=== PATIENT | female | born 1950 | race Caucasian/White ===

== ENCOUNTER → 2017-06-07 | Outpatient (CLI) | payer OTHER | END | disposition home or self-care (01) | LOC: C.RDSM 13:55 | PROVIDERS: ATTEND Physical Medicine & Rehabilitation Sports Medicine | DX: Z09 Encounter for follow-up examination after completed treatment for conditions other than malignant neoplasm (principal); Z96.659 Presence of unspecified artificial knee joint ==

== ENCOUNTER → 2017-12-28 | Outpatient (CLI) | payer OTHER | END | disposition home or self-care (01) | LOC: C.LABSPEC 10:51 | PROVIDERS: ATTEND Nurse Practitioner Family | DX: N39.0 Urinary tract infection, site not specified (principal) ==

== ENCOUNTER 2020-11-27 05:09 | Observation (INO) ==
--- NOTE | 2020-11-04 12:41 | PAT Medication Instructions ---
Medication Instructions Date of Service November 04, 2020 Home Medications acetaminophen [Tylenol 8 Hour] 650 mg PO Q8H anastrozole [Arimidex] 1 mg PO QAM apixaban [Eliquis] 5 mg PO BID atorvastatin [Lipitor] 80 mg PO QAM budesonide-formoterol [Symbicort] 2 puff INHALATION BID calcium 600 mg PO QAM carvedilol [Coreg] 6.25 mg PO BID cholecalciferol (vitamin D3) [Vitamin D3] 25 mcg PO QAM clopidogrel [Plavix] 75 mg PO PM dexlansoprazole [Dexilant] 60 mg PO QAM duloxetine [Cymbalta] 60 mg PO BID ezetimibe [Zetia] 10 mg PO PM furosemide [Lasix] 40 mg PO DAILY PRN gabapentin 400 mg PO HS gabapentin 600 mg PO QID hydrochlorothiazide 12.5 mg PO QAM losartan 100 mg PO PM potassium chloride 10 meq PO DAILY PRN zoledronic jovu-[id number]-znerq [Reclast] 1 ea IV DIRECTED Continue as directed zoledronic wxtl-gppyihys-[id number] [Reclast] 1 ea IV DIRECTED ASK your prescriber and surgeon apixaban [Eliquis] 5 mg PO BID -- will need to be held for 3 days prior to surgery for spinal anesthesia. clopidogrel [Plavix] 75 mg PO PM -- will need to be held for 7 days prior to surgery for spinal anesthesia. DO NOT take the morning of surgery calcium 600 mg PO QAM cholecalciferol (vitamin D3) [Vitamin D3] 25 mcg PO QAM furosemide [Lasix] 40 mg PO DAILY PRN hydrochlorothiazide 12.5 mg PO QAM potassium chloride 10 meq PO DAILY PRN Take morning of surgery With a small sip of water, OTHERWISE NOTHING TO EAT OR DRINK AFTER MIDNIGHT: acetaminophen [Tylenol 8 Hour] 650 mg PO Q8H (if needed, may be taken up to four hours before surgery) anastrozole [Arimidex] 1 mg PO QAM (unless otherwise instructed by surgeon or prescriber) atorvastatin [Lipitor] 80 mg PO QAM budesonide-formoterol [Symbicort] 2 puff INHALATION BID carvedilol [Coreg] 6.25 mg PO BID dexlansoprazole [Dexilant] 60 mg PO QAM duloxetine [Cymbalta] 60 mg PO BID gabapentin 600 mg PO QID Take evening before surgery acetaminophen [Tylenol 8 Hour] 650 mg PO Q8H (if needed) budesonide-formoterol [Symbicort] 2 puff INHALATION BID carvedilol [Coreg] 6.25 mg PO BID duloxetine [Cymbalta] 60 mg PO BID ezetimibe [Zetia] 10 mg PO PM furosemide [Lasix] 40 mg PO DAILY PRN (if needed) gabapentin 400 mg PO HS gabapentin 600 mg PO QID losartan 100 mg PO PM potassium chloride 10 meq PO DAILY PRN (if needed) Other Notes If you have any questions please call us at [phone] or [phone] or [phone] or [phone]
--- NOTE | 2020-11-04 12:59 | Anesthesiology Consultation ---
Date of Service November 04, 2020 Assessment & Plan (1) Encounter for pre-operative examination: COVID Status: As of 11/04 assessment, patient denies travel to endemic area, known exposure/sick contacts, or symptoms of COVID19. Patient instructed that they and their household members must follow strict social distancing guidelines, wear a mask in public and avoid travel/events/gatherings for 14 days prior to surgery. Preoperative COVID19 testing to be completed prior to surgery per surgeon's arrangements. Patient made aware to self-isolate as much as possible between COVID testing and surgery. Possible difficult intubation based on exam. 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 Unfortunately, per cardiology, Eliquis approved to be held for 2 days, and Plavix for 5 days. Therefore patient is not a candidate for spinal anesthesia. Surgeon's office made aware. Chart Review Chart Review: Acceptable Risk for Surgery (pending surgeon ordered pcp clearance) and Patient seen in Pre Admission Testing Teaching & Discussion Instructed NPO after midnight before surgery, except medications with 15 cc of water. Medication instructions provided according to the PAT guidelines. History Surgery Operation Date: 11/27/20 07:15 Proposed Procedures p Left Total Knee Arthroplasty - Luis Alberto Morse MD Height/Weight Height: 5 ft 7 in Weight: 71.4 kg Allergies Allergy/AdvReac Type Severity Reaction Status Date / Time lisinopril Allergy Mild Cough Verified 10/21/20 11:20 oxycodone [From OxyContin] AdvReac Severe Confusion Verified 10/21/20 12:17 Medications Home Medications Medication Instructions Recorded Confirmed Last Taken acetaminophen [Tylenol 8 Hour] 650 mg PO Q8H 10/21/20 10/21/20 Unknown anastrozole [Arimidex] 1 mg PO QAM 10/21/20 10/21/20 Unknown apixaban [Eliquis] 5 mg PO BID 10/21/20 10/21/20 Unknown atorvastatin [Lipitor] 80 mg PO QAM 10/21/20 10/21/20 Unknown budesonide-formoterol [Symbicort] 2 puff INHALATION BID 10/21/20 10/21/20 Unknown calcium 600 mg PO QAM 10/21/20 10/21/20 Unknown carvedilol [Coreg] 6.25 mg PO BID 10/21/20 10/21/20 Unknown cholecalciferol (vitamin D3) 25 mcg PO QAM 10/21/20 10/21/20 Unknown [Vitamin D3] clopidogrel [Plavix] 75 mg PO PM 10/21/20 10/21/20 Unknown dexlansoprazole [Dexilant] 60 mg PO QAM 10/21/20 10/21/20 Unknown duloxetine [Cymbalta] 60 mg PO BID 10/21/20 10/21/20 Unknown ezetimibe [Zetia] 10 mg PO PM 10/21/20 10/21/20 Unknown furosemide [Lasix] 40 mg PO DAILY PRN 10/21/20 10/21/20 Unknown gabapentin 400 mg PO HS 10/21/20 10/21/20 Unknown gabapentin 600 mg PO QID 10/21/20 10/21/20 Unknown hydrochlorothiazide 12.5 mg PO QAM 10/21/20 10/21/20 Unknown losartan 100 mg PO PM 10/21/20 10/21/20 Unknown potassium chloride 10 meq PO DAILY PRN 10/21/20 10/21/20 Unknown zoledronic avsf-ctyljedz-muuea 1 ea IV DIRECTED 10/21/20 10/21/20 Unknown [Reclast] Past Medical History Medical History (Updated 11/07/20 @ 14:30 by Deonte Dang) Arthritis Atrial fibrillation dx 3 yrs ago > follows [facility] > Eliquis Breast cancer 2.5 yrs ago> radiation/chemo > lumpectomy Chronic obstructive pulmonary disease no res inh> well controlled GERD (gastroesophageal reflux disease) History of COVID-19 Only sx was fatigue. Jul 02, 2020. Resolved. Hyperlipidemia Hypertension Migraine hx Myocardial Infarction 4 yrs ago > "stress related" > cath> no stents Nausea and vomiting after administration of anesthetic agent Sleep apnea hasn't been using cpap, kept taking it off at night without realizing it. Stroke 5 yrs ago > right side arm and face parasthesias/ balance issues > follows with [facility] > gabapentin for symptoms. Plavix. Urinary urgency Exercise / Class Metabolic Activity II 4-5 Yardwork/Stairs/Walk up hill (+SOB with 1 FOS, does many times daily at home, slowly, denies any chest pain) Past Surgical History Surgical History History of bilateral tubal ligation History of cardiac cath 4 yrs ago [facility] [place], no stents History of cataract surgery bilat History of colonoscopy History of endoscopic sinus surgery History of esophagogastroduodenoscopy (EGD) History of mandibular surgery 20 yrs ago, some residual restriction of jaw motion, very sore after dentist, has to be propped open. History of tonsillectomy Hx of lumpectomy left Hx of squamous cell carcinoma of skin with removal from several sites [place] teeth removed Past Anesthesia History No Hx of Anesthesia Complications and No Family Hx of Anesthesia Complications History of PONV No Hx of Motion Sickness and History of PONV (relieved with pretreatment with antiemetics) Social History Smoking Status: Never smoker Do You Dip or Chew Tobacco: No Hx Alcohol Use: Yes Alcohol type: beer and wine alcohol intake frequency: a few times a month Hx Substance Use: No substance use type: does not use Review of Systems Pt denies any recent chest pain, shortness of breath, palpitations, cough, fever, URI + acid reflux, despite Dexilant has breakthrough GERD Physical Exam Vital Signs BP: 104/67 P: 68bpm SPO2: 93% RA T: 97.9 F R: 16 ENMT Mouth: no dental restorations, no chipped teeth and no loose teeth Thyromental Distance: < 3.5 Finger Breadths (3) Mallampati Class: IV Neck normal visual inspection and + limited neck extension Respiratory normal respiratory effort, lungs clear to auscultation Cardiovascular Rate/Rhythm: + irregularly irregular Heart Sounds: no murmur Vessels: no carotid bruit Extremities: no edema Testing Laboratory Results 11/04/20 WBC: 6.16 H/H: 14.6/44.2 PLATELETS: 193 SODIUM: 144 POTASSIUM: 3.7 CHLORIDE: 105 CO2: 30 BUN: 12 CREATININE: 0.81 GLUCOSE: 87 PT: 11.5 PTT: 26.2 INR: 1.1 UA: WNL TYPE AND SCREEN: O+, antibody negative Electrocardiogram Date: 11/04/20 Findings: + NSR @ (65bpm) Incomplete right bundle branch block. LVH with repolarization abnormality. Chest X-Ray Date: 11/04/20 FINDINGS: Severe pectus excavatum deformity. This likely accounts for the hazy appearance to the medial lower lung zones. Cardiac silhouette enlargement is also likely due to the pectus excavatum deformity. No pleural effusions. No pneumothorax. Small patchy density within the left midlung zone. The right lung appears clear. No evidence for pulmonary edema. IMPRESSION: Question of a small patchy density within the left midlung zone. Follow-up chest CT is recommended for further evaluation. This finding was called/faxed to the referring physician following dictation. (Chest CT performed 11/04/20, see below) Echocardiogram Date: 06/12/20 EF: 55-60% There is a sigmoid septum noted in 1.5 cm at the base. No LVOT obstruction noted. Normal wall motion. Normal left ventricular systolic function. There is trace to mild mitral regurgitation and trace to mild tricuspid regurgitation. Mildly increased RVSP at 26 - 31 mmHg. Mild diastolic dysfunction, grade 1. Stress Test Date: 06/12/20 Resting EF: 53% Based upon EKG criteria, this test is nondiagnostic. Based upon the nuclear imaging findings there is no evidence of myocardial ischemia or infarction. Study is normal. There are no previous studies for comparison. Other Testing Chest CT 11/04/20 1. Focal area of subpleural fibrotic change/scarring within the anterior left upper lobe. This corresponds to the chest x-ray abnormality and has a benign appearance. 2. Pectus excavatum deformity. 3. Mild aneurysmal dilatation of the ascending thoracic aorta measuring up to 4 cm in diameter.
--- NOTE | 2020-11-26 11:01 | History & Physical Report ---
Date of Service November 26, 2020 Assessment & Plan (1) Left knee DJD: Postoperative prescription for Percocet will be provided at discharge from the hospital. Anticipate discharge to home with home health services. She will hold her Plavix and Eliquis prior to surgery. Surgery will likely be done under general anesthesia due to her anticoagulant requirements. The patient is currently asymptomatic of any COVID-19 symptoms. She is aware of the COVID-19 risks associated with surgery. She will obtain nasal swab testing 1 week prior to surgery. Preoperative lab work, EKG, and chest x-ray have been ordered. She has previously had a stress test in 2019 by [facility]. She already has a walker and access to a cane. History of Present Illness Chief Complaint: Left knee pain Primary Care Provider: Sherif Bal This 69-year-old female presents for a longstanding history of left knee pain. She is scheduled to undergo a left knee total knee arthroplasty on 11/27/2020. Pain has been ongoing for 7-8 years. She has pain that is worse with weightbearing. It does affect her ADL's. The patient previously tried cortison e injections, oral pain medications, and activity modification without improvement. She has a history of a stroke in 2014 and has had issues with balance. She does experience occasional falls. No numbness or tingling in the left leg. Radiographic imaging has been obtained. She denies any loss of motion. No other complaints. Allergies Allergy/AdvReac Type Severity Reaction Status Date / Time lisinopril Allergy Mild Cough Verified 10/21/20 11:20 oxycodone [From OxyContin] AdvReac Severe Confusion Verified 10/21/20 12:17 Home Medications Medication Instructions Recorded Confirmed Type acetaminophen [Tylenol 8 Hour] 650 mg PO Q8H 10/21/20 10/21/20 History anastrozole [Arimidex] 1 mg PO QAM 10/21/20 10/21/20 History apixaban [Eliquis] 5 mg PO BID 10/21/20 10/21/20 History atorvastatin [Lipitor] 80 mg PO QAM 10/21/20 10/21/20 History budesonide-formoterol [Symbicort] 2 puff INHALATION BID 10/21/20 10/21/20 History calcium 600 mg PO QAM 10/21/20 10/21/20 History carvedilol [Coreg] 6.25 mg PO BID 10/21/20 10/21/20 History cholecalciferol (vitamin D3) 25 mcg PO QAM 10/21/20 10/21/20 History [Vitamin D3] clopidogrel [Plavix] 75 mg PO PM 10/21/20 10/21/20 History dexlansoprazole [Dexilant] 60 mg PO QAM 10/21/20 10/21/20 History duloxetine [Cymbalta] 60 mg PO BID 10/21/20 10/21/20 History ezetimibe [Zetia] 10 mg PO PM 10/21/20 10/21/20 History furosemide [Lasix] 40 mg PO DAILY PRN 10/21/20 10/21/20 History gabapentin 400 mg PO HS 10/21/20 10/21/20 History gabapentin 600 mg PO QID 10/21/20 10/21/20 History hydrochlorothiazide 12.5 mg PO QAM 10/21/20 10/21/20 History losartan 100 mg PO PM 10/21/20 10/21/20 History potassium chloride 10 meq PO DAILY PRN 10/21/20 10/21/20 History zoledronic tuqv-cboyqxsd-eomns 1 ea IV DIRECTED 10/21/20 10/21/20 History [Reclast] Past Med/Surg History Medical History Arthritis Atrial fibrillation dx 3 yrs ago > follows [facility] with [facility] > Eliquis Breast cancer 2.5 yrs ago> radiation/chemo > lumpectomy Chronic obstructive pulmonary disease no res inh> well controlled GERD (gastroesophageal reflux disease) History of COVID-19 Only sx was fatigue. Jul 02, 2020. Resolved. Hyperlipidemia Hypertension Migraine hx Myocardial Infarction 4 yrs ago > "stress related" > cath> no stents Nausea and vomiting after administration of anesthetic agent Sleep apnea hasn't been using cpap, kept taking it off at night without realizing it. Stroke 5 yrs ago > right side arm and face parasthesias/ balance issues > follows with [facility] > gabapentin for symptoms. Plavix. Urinary urgency Surgical History History of bilateral tubal ligation History of cardiac cath 4 yrs ago [facility] [place], no stents History of cataract surgery bilat History of colonoscopy History of endoscopic sinus surgery History of esophagogastroduodenoscopy (EGD) History of mandibular surgery 20 yrs ago, some residual restriction of jaw motion, very sore after dentist, has to be propped open. History of tonsillectomy Hx of lumpectomy left Hx of squamous cell carcinoma of skin with removal from several sites [place] teeth removed Family History (Updated 11/26/20 @ 10:57 by Bud Rios PA-C) Other No pertinent family history Social History (Updated 11/26/20 @ 10:57 by Bud Rios PA-C) Smoking Status: Never smoker Second Hand Exposure: No; Hx Alcohol Use: Yes Alcohol type: beer and wine Hx Substance Use: No Preferred Language: Kazakh Communication Ability: Effective Sports Medicine Specialist Required: No Beliefs That Will Affect Care: None marital status: Current Living Situation: Spouse current occupational status: retired Feels Safe at Home: Yes Assistive Devices: CPAP and Glasses Review of Systems Review of Systems: All systems reviewed & are unremarkable except as noted in HPI & below A total of 10 systems were reviewed. Physical Exam Physical Exam: Vitals: Height 171.5 cm, weight 72.9 kilograms, temperature 37.2, BP 144/90, pulse 66, O2 sat 93% on room air. General: Well-developed, well-nourished, elderly white female in no acute distress. Sitting in a chair. Alert and oriented. Skin: Warm and dry with good turgor. No rashes or lesions. No ecchymosis. HEENT: Normocephalic, atraumatic. Eyes: PERRLA, EOMI. Nares and oropharynx exams deferred due to COVID precautions. Heart: RRR, no MGR. Lungs: Clear to auscultation bilaterally, no crackles, rhonchi or wheezing, good air movement. Abdomen: Bowel sounds present x4, soft, nontender. No organomegaly. No masses. Musculoskeletal: Left knee evaluation reveals no intraarticular effusion. No redness or warmth. Full terminal extension. Flexion to around 110 degrees. Strength is 5/5 with fair quad tone. Stable collateral ligaments. No defect in the patellar tendon or quadriceps tendon. She has significant discomfort with palpation over the medial joint line. No lateral joint line discomfort today. She does have patellofemoral crepitus with motion. Ambulates with an antalgic gait. Varus alignment. Neurologic: Gross sensation is intact across both lower extremities by soft touch. Peripheral pulses are 2+. Results & Data Results & Data ([facility]) Diagnostic Findings Previous radiographic imaging shows advanced DJD in the left knee with joint space narrowing, periarticular osteophytes and sclerosis. DJD is worst in the medial and patellofemoral compartments.
[2020-11-27] MEDS ORDERED: TRANEXAMIC ACID 1,000 MG x 1 **For Topical Use TOP SCH (06:00)
[2020-11-27] MEDS ORDERED: ceFAZolin 2000MG 2,000 MG/15 ML SYR IV SCH (06:00)
[2020-11-27] MEDS ORDERED: LR 500ML BOLUS, THEN 15ML/HR IV SCH (06:00)
[2020-11-27] MEDS ORDERED: LR 60ML/HR IV SCH (06:00)
[2020-11-27] MEDS ORDERED: ROPIVACAINE 0.5% HCL/PF 150 MG, BUPIVACAINE 0.75% MPF 20 ML, EPINEPHrine 0.15 MG, Ketor... INFIL SCH (06:00)
--- NOTE | 2020-11-27 06:20 | History & Physical Bridge Note ---
Date of Service November 27, 2020 History & Physical Bridge Note I have examined the patient, reviewed the History & Physical and in the interval since the performance of the History & Physical I have noted the following changes of clinical significance:consent obtained/site verified/covid screen negative. no changes noted
[2020-11-27] MEDS ORDERED: ROPIVACAINE 0.5% 5 MG/ML 30 ML VIAL ONE (06:32)
[2020-11-27] MEDS ORDERED: BUPIVACAINE 0.5 % 5 MG/1 ML PF 10ML VIAL ONE (06:32)
[2020-11-27] MEDS ORDERED: MIDAZOLAM HCL 1 MG/ML 2ML VIAL ONE (06:36)
[2020-11-27] MEDS ORDERED: fentaNYL citrate 100 MCG/2 ML VIAL ONE ×2 (06:36→07:25)
[2020-11-27] MEDS ORDERED: ORTHO JOINT ANESTHETIC ONE (06:41)
[2020-11-27] MEDS ORDERED: LABETALOL HCL IV 5 MG/ML 20ML IV PRN (07:03)
[2020-11-27] MEDS ORDERED: ALBUTEROL 0.083% NEBU SOLN 3 ML VIAL INH PRN (07:03)
[2020-11-27] MEDS ORDERED: ATROPINE SULFATE 0.1 MG/ML 10ML SYR IV PRN (07:03)
[2020-11-27] MEDS ORDERED: PROMETHAZINE HCL 6.25 MG in SODIUM CHLORIDE 0.9% 50 ML IV PRN (07:03)
[2020-11-27] MEDS ORDERED: ONDANSETRON INJ 2 MG/ML 2 ML VIAL IV PRN ×2 (07:03→11:05)
[2020-11-27] MEDS ORDERED: KETOROLAC TROMETHAMINE 15 MG/ML VIAL IV PRN (07:16)
[2020-11-27] MEDS ORDERED: GLYCOPYRROLATE 0.2 MG/ML VIAL ONE (07:35)
[2020-11-27] MEDS ORDERED: PROPOFOL IV EMULSION 10 MG/ML 20 ML VIAL IV ONE (07:35)
[2020-11-27] MEDS ORDERED: ROCURONIUM BROMIDE 10 MG/ML 5 ML VIAL IV ONE (07:35)
[2020-11-27] MEDS ORDERED: LIDOCAINE HCL 2% 2 ML VIAL/AMP(20MG/ML) INFIL ONE (07:35)
[2020-11-27] MEDS ORDERED: NEOSTIGMINE METHYLSULFATE 5 MG/5 ML SYR ONE (07:35)
[2020-11-27] MEDS ORDERED: DEXAMETHASONE SOD INJ 4 MG/ML VIAL ONE (07:35)
[2020-11-27] MEDS ORDERED: ONDANSETRON INJ 2 MG/ML 2 ML VIAL ONE (07:35)
[2020-11-27] MEDS ORDERED: ePHEDrine sulfate 50 MG/ML SYR ONE (08:04)
[2020-11-27] MEDS ORDERED: PHENYLEPHRINE 100MCG/ML 5ML SYR ONE (08:07)
--- NOTE | 2020-11-27 08:26 | Post Operative Brief Note ---
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
--- NOTE | 2020-11-27 08:35 | Operative Report ---
Post Operative Report Pre & Post Diagnosis Operation Date: 11/27/20 07:00 Pre-Op Diagnosis: Left Knee Degenerative Joint Disease Post-Op Diagnosis: Left Knee Degenerative Joint Disease I identified the patient and participated in the time-out.: Yes Procedure Operation Date: 11/27/20 07:00 Actual Procedures p Left Total Knee Arthroplasty(Left) - Luis Alberto Morse MD Surgeon JANIA Morse MD Ironer Machine [place]/Blanca DOMINGUEZ Estimated Blood Loss 75 Findings Consistent with Post-Op Diagnosis Specimens see operative report Drains none Complications none Disposition Accompanied Patient To Recovery: Yes Disposition: Recovery Room Indications This 69-year-old female presented to the office with complaints of persisting left knee pain. She had tried conservative care measures without improvement. She elected to proceed with surgical intervention after being educated about potential risks and outcomes. Preoperative imaging was obtained. She was previously scheduled for this procedure several years ago but has had it delayed twice secondary to other medical issues. Description of Procedure Patient was taken to the operating room where she was given general anesthesia. She was prepped and draped in the usual sterile fashion. Please see Dr. Morse's operative report for specifics of the procedure. I was present for the entire case from initial patient positioning through final wound closure. Assistance was provided in tissue retraction, hemostasis, trial implant placement, final implant placement, and final wound closure. Patient was taken to the recovery room in satisfactory condition. I attest to the content of the Intraoperative Record and any orders documented therein. Any exceptions are noted below.
--- NOTE | 2020-11-27 08:53 | Operative Report (OR) ---
DATE OF OPERATION: 11/27/2020 SURGEON: Luis Alberto Morse MD. MERCHANDISE SUPPORT ASSOCIATE: Dr. Hahn. SECOND MERCHANDISE SUPPORT ASSOCIATE: Bud Rios PA-C. PREOPERATIVE DIAGNOSIS: Osteoarthritis with flexion varus deformity, left knee. POSTOPERATIVE DIAGNOSIS: Osteoarthritis with flexion varus deformity, left knee. OPERATION PERFORMED: Cemented left total knee replacement. PERIOPERATIVE SITUATION: Medically cleared female who has failed conservative management for years. At this point in time, wants to proceed with surgical treatment. X-rays reveal end-stage tricompartmental disease with varus deformity and flexion deformity. DESCRIPTION OF PROCEDURE: The patient was appropriately identified, site verified, consent verified. Antibiotics confirmed as being given. The left lower extremity was prepped and draped in usual routine fashion. Tourniquet inflated to 300 mmHg after exsanguination of limb with a rubber Esmarch bandage for a total of 50 minutes. Midline exposure utilized. Parapatellar arthrotomy performed. Synovectomy completed, osteophytes resected. Distal femur entered. Distal femur resected 14 mm, tibia subluxated, menisci resected. Proximal tibia resected 4 mm. The extension gap was excellent. The tibia was sized to 2.5. The femur measured between a 3 and a 2.5, it was measured 3 cut 2.5, flexion gap was excellent. The box cut was then made and the size 2.5 fit well after some slight adjustment on the posterior osteophyte medially. The tibia was then subluxated and broached the ream to a size 2.5 and a 10 mm spacer gave excellent stability in both full extension, mid range flexion and full flexion. The patella tracked well. The patella was resected leaving 16 mm, 41 template trial seated and tracked well. The knee was then injected with Orthomix throughout its entire area. Implants were then removed. The TXA sat in the knee for 3 minutes. Once this was done, it was irrigated and the permanent cemented in position, tibia, femur, patella in that order. After 12 minutes, the tourniquet deflated. Minor bleeding points controlled with electrocautery. After 14 minutes knee flexed, trial spacer removed, knee irrigated. No cement removal required. Permanent liner seated. The knee reduced and closed at 30-40 degrees of flexion with #2 Vicryl, 2-0 Vicryl and stainless steel clips. Appropriate dressing applied. The patient is on chronic Eliquis, so she had a cotton Jorge Vargas dressing overnight and will have a Webril dressing for a week postop to prevent bleeding. Estimated blood loss during the procedure was 100 or less. SUMMARY OF IMPLANTS: Size 2.5 left posterior cruciate substituting femur, size 2.5 mobile bearing tray, size 2.5 x 10 mm posterior cruciate substituting spacer, 41 patella, 2 bags of Palacos G cement. Bone pathology pending. DVT, PE prophylaxis per her Eliquis. I attest to the content of the Intraoperative Record and any orders documented therein. Any exception s are noted below.
--- NOTE | 2020-11-27 09:04 | Discharge Summary (DS) ---
DATE OF DISCHARGE: 11/28/2020. CHIEF COMPLAINT: Left knee pain. HISTORY OF PRESENT ILLNESS: The patient underwent elective left total knee replacement. Hospital course at this point in time has been uneventful. A 69-year-old female with intractable knee pain, has failed conservative management and wants to proceed with surgical treatment, underwent elective left total knee replacement. HOME MEDICATIONS: Please see medication reconciliation sheet, quite extensive. PAST MEDICAL HISTORY: Remarkable for arthritis, atrial fibrillation, breast cancer, COPD, GERD, hyperlipidemia, hypertension, migraine, history of myocardial infarction, nausea and vomiting with a narcotic, sleep apnea, stroke, urinary disease. PAST SURGICAL HISTORY: Include tubal ligation, cardiac catheterization, cataract surgery, colonoscopies, EGDs, mandibular surgery, tonsillectomy, lumpectomy, skin cancers, wisdom teeth. FAMILY HISTORY: Reveals no findings. SOCIAL HISTORY: Reveals that she does not smoke or drink other than social alcohol, beer or wine. REVIEW OF SYSTEMS: Reveals no chest pain, shortness of breath, fever, chills, nausea, vomiting or headache. ASSESSMENT: Postop left total knee replacement. Continue with postop care pathway. Potential discharge tomorrow, if she does well overnight,
--- NOTE | 2020-11-27 09:08 | XRay Report ---
XR knee LT 1 or 2V routine CLINICAL HISTORY: S/P L TKA COMPARISON: Left knee radiographs July 22, 2020. FINDINGS: Alignment of the total left knee arthroplasty is anatomic. There is no periprosthetic frac ture. There is no unexpected radiopaque foreign body. There are skin kimo. IMPRESSION: Expected findings following total left knee arthroplasty. ACT 112: Negative or not required by law. Electronically signed by: Luigi Altman M.D. 11/27/2020 9:07 AM
[2020-11-27] MEDS ORDERED: KETOROLAC 30 MG/ML VIAL ONE (09:16)
[2020-11-27] MEDS: HYDROmorphone INJ 1 MG/ML SYRINGE IV PRN ×4 (09:25→09:48)
--- NOTE | 2020-11-27 10:40 | Operative Report ---
Post Operative Report Pre & Post Diagnosis Operation Date: 11/27/20 07:00 Pre-Op Diagnosis: Left Knee Degenerative Joint Disease Post-Op Diagnosis: Left Knee Degenerative Joint Disease I identified the patient and participated in the time-out.: Yes Procedure Operation Date: 11/27/20 07:00 Actual Procedures p Left Total Knee Arthroplasty(Left) - Luis Alberto Morse MD Surgeon Luis Alberto Morse MD [employer] [place]/Blanca DOMINGUEZ Estimated Blood Loss 75 Findings Consistent with Post-Op Diagnosis Specimens bone cuts Anesthesia Type General Complications none Disposition Accompanied Patient To Recovery: Yes Disposition: Recovery Room Description of Procedure As per Dr. Morse's note, I assisted in prepping and draping, instruments handling, certain parts of the procedure and wound closure. I attest to the content of the Intraoperative Record and any orders documented therein. Any exceptions are noted below.
[2020-11-27] MEDS ORDERED: bisacodyL 10 MG SUPP PR PRN (11:05)
[2020-11-27] MEDS ORDERED: FUROSEMIDE 40 MG TAB PO PRN (11:05)
[2020-11-27] MEDS ORDERED: NALOXONE HCL 0.4 MG/1 ML VIAL/CARP IV PRN (11:05)
[2020-11-27] MEDS ORDERED: MAGNESIUM HYDROXIDE SUSP 30 ML UDC PO PRN (11:05)
[2020-11-27] MEDS ORDERED: oxyCODONE HCL IR 5 MG TAB (IMMEDIATE RELEASE) PO PRN (11:05)
[2020-11-27] MEDS ORDERED: ALUMINUM/MAGNESIUM SUSP 30 ML UDC PO PRN (11:05)
[2020-11-27] MEDS ORDERED: diphenhydrAMINE 50 MG/ML VIAL IV PRN (11:05)
[2020-11-27] MEDS ORDERED: POTASSIUM CHLORIDE 10 MEQ TABCR PO PRN (11:05)
[2020-11-27] MEDS ORDERED: HYDROmorphone INJ 0.5 MG/0.5 ML SYR IV PRN (11:05)
[2020-11-27] MEDS ORDERED: SODIUM CHLORIDE 0.9% 1000ML 1,000 ML IV SCH (11:05)
[2020-11-27] MEDS ORDERED: METOCLOPRAMIDE HCL INJ 5 MG/ML 2 ML VIAL IV PRN (11:05)
--- NOTE | 2020-11-27 11:50 | Anesthesiology Progress Note ---
Date of Service November 27, 2020 Anesthesia Post Procedure Vital Signs Vital Signs: Temp Pulse Pulse Resp BP Pulse Ox 11/27/20 11:13 68 16 124/66 98 11/27/20 10:51 68 16 132/64 98 11/27/20 10:24 37 C 67 15 129/61 99 11/27/20 10:05 66 20 119/55 L 95 11/27/20 10:00 36.2 C L 58 L 20 122/52 L 98 11/27/20 09:50 59 L 12 123/54 L 99 11/27/20 09:40 62 20 122/61 98 11/27/20 09:30 66 18 135/59 L 98 11/27/20 09:20 62 14 145/67 H 98 11/27/20 09:10 61 19 142/73 H 99 11/27/20 09:00 58 L 22 151/68 H 100 11/27/20 08:50 55 L 11 L 147/66 H 100 11/27/20 08:44 37.0 C 59 L 17 156/83 H 100 11/27/20 05:48 36.8 C 59 L 20 175/77 H 96 Pain Intensity Left Knee: Pain Intensity: 5 Transfer of Care Handoff Completed per policy Notes Mental Status: alert / awake / arousable Patient Amnestic to Procedure: Yes Nausea / Vomiting: adequately controlled Pain: adequately controlled Airway Patency, RR, SpO2: stable & adequate BP & HR: stable & adequate Hydration State: stable & adequate Anesthetic Complications: no major complications apparent
--- NOTE | 2020-11-27 11:51 | Progress Notes ---
DATE: 11/27/2020 SUBJECTIVE: Postop check status post left total knee replacement. The patient is drowsy but answers questions appropriately. Opens her eyes, follows commands. She denies chest pain, shortness of breath, fever, chills, nausea, vomiting or headache. OBJECTIVE: Vital signs are stable. She is afebrile. Neurovascular check, femoral sciatic nerve is normal. Wound dressing clean, dry and intact. Postop x-rays look excellent. ASSESSMENT: Doing well. Continue care pathway. Discharge to home tomorrow if she does well overnight.
[2020-11-27] MEDS: ATORVASTATIN 40 MG TAB PO SCH (12:32)
[2020-11-27] MEDS: hydroCHLOROthiazide 25 MG TAB PO SCH (12:32)
[2020-11-27] MEDS: DOCUSATE SODIUM 100 MG CAP PO SCH ×2 (12:32→20:10)
[2020-11-27] MEDS: DULoxetine HCL 60 MG CAP PO SCH ×2 (12:32→20:09)
[2020-11-27] MEDS: ANASTROZOLE 1 MG TAB PO SCH (12:33)
[2020-11-27] MEDS: FLUTICASONE/VILANTEROL 100/25MCG 14 PUFFS/INHALER INH SCH (12:33)
[2020-11-27] MEDS: MULTIVITAMIN TAB PO SCH (12:33)
[2020-11-27] MEDS: KETOROLAC TROMETHAMINE 15 MG/ML VIAL IV SCH ×3 (12:34→23:19)
[2020-11-27] MEDS: GABAPENTIN 600 MG TAB PO SCH ×3 (12:34→20:08)
[2020-11-27] MEDS: PANTOprazole 40 MG TAB PO SCH (12:34)
[2020-11-27] MEDS: CHOLECALCIFEROL 1,000 UNITS 25 MCG TAB PO SCH (12:34)
[2020-11-27] MEDS: ACETAMINOPHEN 500 MG TAB PO SCH ×2 (13:37→22:50)
[2020-11-27] MEDS: ceFAZolin 2000MG 2,000 MG/15 ML SYR IV SCH ×2 (15:06→23:20)
[2020-11-27] MEDS: FERROUS GLUCONATE 324 MG TAB PO SCH (18:23)
[2020-11-27] MEDS: ASCORBIC ACID 500 MG TAB PO SCH (18:24)
[2020-11-27] MEDS: carvediloL 6.25 MG TAB PO SCH (20:10)
[2020-11-27] MEDS ORDERED: GABAPENTIN 400 MG CAP PO SCH (21:00)
[2020-11-27] MEDS ORDERED: SENNA 8.6 MG TAB PO SCH (21:00)
[2020-11-27] MEDS ORDERED: LOSARTAN POTASSIUM 50 MG TAB PO SCH (21:00)
[2020-11-27] MEDS ORDERED: EZETIMIBE 10 MG TABLET PO SCH (21:00)
--- NOTE | 2020-11-28 06:09 | Progress Notes ---
DATE: 11/28/2020 SUBJECTIVE: Postop day #1 status post left total knee replacement. The patient is doing well. She has no major pain. Has no nausea, vomiting, chest pain, shortness of breath, fever, or chills. OBJECTIVE: Vital signs are stable. She is afebrile. Wound dressing is clean, dry and intact. Neurovascular check, femoral sciatic nerve is normal. Can do a straight leg raise. ASSESSMENT AND PLAN: Doing well. Labs pending this morning. If they look good, she can be discharged after PT, OT. She is a little bit hesitant about leaving ,so we will have her do PT twice before leaving, but she should be able to leave today. VIKTOR
[2020-11-28] MEDS: KETOROLAC TROMETHAMINE 15 MG/ML VIAL IV SCH (06:15)
[2020-11-28] MEDS: ACETAMINOPHEN 500 MG TAB PO SCH ×2 (06:16→13:24)
[2020-11-28 06:18] LABS: Hemoglobin 10.7 g/dL (12.0-16.0); Mean Corpuscular Hemoglobin 29.8 pg (25-34); Mean Corpuscular Hgb Conc 32.4 g/dL (32-36); Mean Corpuscular Volume 91.9 fL (80-100); Platelet Count 151 K/uL (130-400); RDW Coefficient of Variation 13.4 % (11.5-14.5); Red Blood Count 3.59 M/uL (4.2-5.4); White Blood Count 9.25 K/uL (4.8-10.8)
[2020-11-28 06:52] LABS: BUN Creatinine Ratio 22.1 (10-20); Calcium 8.3 mg/dl (8.5-10.1); Creatinine Clr Calc Pharmacy 67.1 ml/min; Est GFR (African American) 91.3; Est GFR (Non-African American) 78.8; Potassium 3.4 mmol/L (3.5-5.1)
[2020-11-28] MEDS ORDERED: dexAMETHasone 10 MG in SYRINGE 0 ML IV SCH (08:00)
[2020-11-28] MEDS: FERROUS GLUCONATE 324 MG TAB PO SCH (08:33)
[2020-11-28] MEDS: ASCORBIC ACID 500 MG TAB PO SCH (08:34)
[2020-11-28] MEDS: ANASTROZOLE 1 MG TAB PO SCH (08:34)
[2020-11-28] MEDS: FLUTICASONE/VILANTEROL 100/25MCG 14 PUFFS/INHALER INH SCH (08:34)
[2020-11-28] MEDS: DOCUSATE SODIUM 100 MG CAP PO SCH (08:35)
[2020-11-28] MEDS: carvediloL 6.25 MG TAB PO SCH (08:35)
[2020-11-28] MEDS: DULoxetine HCL 60 MG CAP PO SCH (08:35)
[2020-11-28] MEDS: hydroCHLOROthiazide 25 MG TAB PO SCH (08:36)
[2020-11-28] MEDS: ATORVASTATIN 40 MG TAB PO SCH (08:37)
[2020-11-28] MEDS: MULTIVITAMIN TAB PO SCH (08:37)
[2020-11-28] MEDS: PANTOprazole 40 MG TAB PO SCH (08:38)
[2020-11-28] MEDS: GABAPENTIN 600 MG TAB PO SCH ×2 (08:38→13:24)
[2020-11-28] MEDS: CHOLECALCIFEROL 1,000 UNITS 25 MCG TAB PO SCH (08:39)
[2020-11-28] MEDS ORDERED: APIXABAN 5 MG TABLET PO SCH (09:00)
--- NOTE | 2020-11-28 10:21 | Orthopedic Progress Note ---
Date of Service November 28, 2020 Assessment & Plan (1) S/P total knee replacement using cement: Dressing was changed today by me. Additional cotton webril was applied to assist in compression. She will leave this in place until Wednesday, and then change as needed for soiling. Written discharge instructions were provided. Resume her Eliquis today along with her Plavix. Prescription for Percocet was sent to her pharmacy. She may increase the duration of doses or cut the tablets in half if they are causing nausea/constipation. Follow-up in the office in 2 weeks as scheduled for staple removal. Home health will visit her on Wednesday for a dressing change. Discontinue use of the knee immobilizer after dinner tomorrow. Admission and Anticipated Discharge Date Admission Date: November 27, 2020 Subjective Patient is seen in her room this morning. She is currently resting. She states she feels tired from participating in physical therapy. She denies any chest pain, nausea, vomiting, shortness of breath, or abdominal pain. She is somewhat anxious today. No other complaints. Review of Systems Review of Systems: Unchanged from yesterday. Physical Exam Physical Exam: General: Well-developed, well-nourished, elderly female, in no acute distress. Laying in bed. Alert and conversive. Skin: Warm and dry with good turgor. No rashes. Postsurgical dressing is in place. Upon removal, she has almost no drainage on her dressings. There is no active bleeding. [place] are intact. Wound edges are well approximated. No ecchymosis or erythema. Expected postoperative edema. Musculoskeletal: Patient has intact motor function to her ankle and toes. She is able to perform a straight leg raise. She has full extension. Flexion to greater than 60 degrees. Neurologic: Gross sensation is intact across the left leg by soft touch. Peripheral pulses are 2+. Results & Data ([facility]) Vital Signs (Past 12 Hours) Vital Signs Temp Pulse Resp BP Pulse Ox Pulse Ox 11/28/20 07:27 36.4 C L 69 16 126/68 100 11/28/20 04:04 36.7 C 74 14 97 11/27/20 22:50 98 11/27/20 22:32 36.6 C 74 14 114/68 92 Laboratory Results Labs this morning show a white count of 9.25, hemoglobin 10.7, hematocrit 33.0. PRP is unremarkable. Sodium 140, potassium 3.4, chloride 107, CO2 30, glucose 136, calcium 8.3.
[2020-11-28] MEDS ORDERED: CLOPIDOGREL BISULFATE 75 MG TAB PO SCH (21:00)
== END 2020-11-28 14:21 | disposition home health service (06) ==
LOC: ASU 05:09 → 3E 05:09